=== PATIENT | male | born 1965 | race Caucasian/White ===

== ENCOUNTER 2017-06-12 16:31 | Emergency (ER) | payer OTHER, BC ==
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
[2017-06-12] MEDS ORDERED: Take Home: Cyclobenzaprine 10 MG Tab, 4 Tab Pack PO ONE (18:21)
== END 2017-06-12 18:30 | disposition home or self-care (01) ==
LOC: VM.ED 16:31
DX: M62.830 Muscle spasm of back (principal); Z88.0 Allergy status to penicillin; V49.40XA Driver injured in collision with unspecified motor vehicles in traffic accident, initial encounter
CPT/HCPCS: 72125; 72128; 72131; 99284; A9270-GY; J2360

== ENCOUNTER 2024-03-30 14:46 | Observation (INO) | payer OTHER ==
[2024-03-30] MEDS ORDERED: Ondansetron 4 MG Tab.DIS PO PRN (16:24)
[2024-03-30] MEDS ORDERED: Albuterol/Ipratropium 3.0-0.5 MG/3 ML Neb Soln NEB PRN (16:28)
[2024-03-30] MEDS ORDERED: Sodium Chloride 0.9% 10 ML Syringe FLUSH PRN (16:33)
[2024-03-30] MEDS: metFORMIN 500 MG Tab PO SCH (17:18)
[2024-03-30] MEDS: Lactated Ringers 1,000 ML IV SCH (17:30)
[2024-03-31 06:53] LABS: HEMATOCRIT 38.6 % (40.0-52.0); HEMOGLOBIN 13.3 g/dL (14.0-18.0); MEAN CORPUSCULAR HEMOGLOBIN 29.8 pg (26.0-32.0); MEAN CORPUSCULAR HGB CONC 34.5 g/dL (32.0-36.0); MEAN CORPUSCULAR VOLUME 86.4 fL (78.0-93.0); PLATELET COUNT,PLT 163 x10^3/uL (130-400); RED BLOOD CELL COUNT 4.47 x10^6/uL (4.5-6.0); WHITE BLOOD CELL COUNT,WBC 3.3 x10^3/uL (4.0-10.0)
[2024-03-31 07:01] LABS: ANION GAP 10.9 mmol/L (5-15); CALCIUM 8.2 mg/dL (8.5-10.1); EST CRCL DRUG DOSING (CG) 83.67 mL/min; POTASSIUM,K 3.9 mmol/L (3.5-5.1)
[2024-03-31 07:16] LABS: LYMPHOCYTES ABSOLUTE MAN 0.9 x10^3/uL (1.0-4.8); LYMPHOCYTES PERCENT MAN 28 % (25-50); MONOCYTES ABSOLUTE MAN 0.4 x10^3/uL (0.0-0.8); MONOCYTES PERCENT MAN 11 % (2-11); PLATELET COUNT ESTIMATE ADEQUATE; SEG NEUTROPHILS PERCENT MAN 61 % (50-80)
[2024-03-31] MEDS: predniSONE 20 MG Tab PO SCH (08:54)
[2024-03-31] MEDS: glipiZIDE 10 MG Tab.ER PO SCH (08:54)
[2024-03-31] MEDS: Ezetimibe 10 MG Tab PO SCH (08:55)
== END 2024-03-31 12:50 | disposition home or self-care (01) ==
LOC: VM.MS 14:46
PROVIDERS: ADMIT Nurse Practitioner Family; ATTEND Nurse Practitioner Family
DX: J10.1 Influenza due to other identified influenza virus with other respiratory manifestations (principal); R09.02 Hypoxemia; E11.9 Type 2 diabetes mellitus without complications; E78.2 Mixed hyperlipidemia; Z79.84 Long term (current) use of oral hypoglycemic drugs; Z79.899 Other long term (current) drug therapy
CPT/HCPCS: 36415; 80048; 82947; 85025; 94760; 96360; 96361; A9270-GY; G0378; J7120; J7512

== ENCOUNTER 2024-04-11 02:30 | Emergency (ER) | payer OTHER ==
[2024-04-11] MEDS: Acetaminophen/HYDROcodone 325-5 MG Tab PO ONE (03:03)
== END 2024-04-11 03:10 | disposition home or self-care (01) ==
LOC: VM.ED 02:30
DX: M94.0 Chondrocostal junction syndrome [Tietze] (principal); E11.9 Type 2 diabetes mellitus without complications; Z79.899 Other long term (current) drug therapy; Z79.84 Long term (current) use of oral hypoglycemic drugs; Z88.0 Allergy status to penicillin; Z88.8 Allergy status to other drugs, medicaments and biological substances
CPT/HCPCS: 99283; A9270